=== PATIENT | female | born 1980 | race Two or more races ===

== ENCOUNTER → 2017-02-14 | Outpatient (CLI) | payer BC ==
--- NOTE | ~2017-02-14 | MY26 ---
[facility] A Service of [facility] & [facility] RADIOLOGY TEXT RESULTS PATIENT: LEWIS MURCIA LOCATION: [facility] : 82 UNIT #: [id number] AGE: [address]: KAREN MARTIN MD SEX: F ORDER DR: [id number] [facility] [address]. [place], [place] [address] [id number] O MR#: [id number] Acc #: [id number] NAME: LEWIS MURCIA : 1980 SEX: F STUDY DATE/TIME: 02/14/2017 11:40 UNIT: [facility] ROOM: STUDY DESCRIPTION: [facility] DIAGNOSTIC W/ CAD BILAT Attending Physician: Karen Martin M.D. Referring Physician: Karen Martin M.D. Ordering Physician: Physician Non-Staff Primary Care Physician: Karen Martin M.D. MEDICAL IMAGING REPORT This report is preliminary unless electronic signature is present EXAMS 1. Bilateral digital diagnostic mammogram with CAD. 2. Diagnostic left breast ultrasound. CLINICAL HISTORY 36-year-old female with a new palpable abnormality in the medial left breast. The nodule has been present for 1 week. FINDINGS Mammogram: The background breast parenchyma consists of scattered fibroglandular densities. When compared to the prior study, there is asymmetric density in the upper/outer quadrant of the left breast on the MLO projection. There are 2 areas of asymmetric density on the lateral left breast on the CC projection. There is a 0.8 x 0.5 x 0.8 cm well-circumscribed nodule in the medial left breast which correlates with the patient's palpable abnormality. There is no associated microcalcifications or architectural distortion. The borders are well-defined and well demarcated. Exam is compared to prior mammogram dated 10/01/2013. 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 LEFT BREAST ULTRASOUND: Tom-scale and color Doppler ultrasound of the left breast was performed with attention to the palpable abnormality. There is a well-circumscribed hyperechoic nodule measuring 1.3 x 1.2 x 0.8 cm. There is a low internal cyst with some internal debris. This is STS. [facility] A Service of [facility] RADIOLOGY TEXT RESULTS PATIENT: LEWIS MURCIA LOCATION: [facility] : 82 UNIT #: [id number] AGE: [address]: KAREN MARTIN MD SEX: F ORDER DR: probably an area of fat necrosis or a complex cyst. This can be followed at 6-month interval. IMPRESSION 1. Incomplete mammogram. There are asymmetric densities in the left breast that are changed from the patient's prior mammogram of 10/01/2013. Diagnostic left breast mammogram with spot compression views and rolled views are recommended. 2. Please note the patient's outside images were not available at the time of her visit to acquire these additional images. These abnormalities were not apparent until direct comparison with the prior studies. 3. The well-circumscribed palpable nodule in the left breast should undergo a 6-month follow-up ultrasound, regardless of the diagnostic mammogram results. 4. BIRADS 0. RECOMMENDATIONS: (1) Diagnostic left breast mammogram to further evaluate areas in the lateral left breast. (2) Six month follow up left breast ultrasound. Patients over the age of 40 are entered into a reminder system with target due date for the next mammogram. A result letter will also be sent to the patient. BIRADS: 0 Incomplete; need additional imaging evaluation and/or prior mammograms for comparison. Dictated by... Jose Garcia M.D. THIS IS AN ELECTRONICALLY VERIFIED REPORT Jose Garcia M.D. at 02/17/2017 3:01 PM MIGUEL/lori TD: 02/14/2017 15:54 JOB #: [id number] MEDICAL IMAGING REPORT Page 1 of 1 COPY
--- NOTE | ~2017-02-14 | US24 ---
[facility] A Service [facility] RADIOLOGY TEXT RESULTS PATIENT: LEWIS MURCIA LOCATION: [facility] : 81 UNIT #: [id number] AGE: [address]: KAREN MARTIN MD SEX: F ORDER DR: [id number] [address] [address] [id number] O MR#: [id number] Acc #: [id number] NAME: LEWIS MURCIA : 1980 SEX: F STUDY DATE/TIME: 02/14/2017 8:44 UNIT: [facility] ROOM: STUDY DESCRIPTION: US Breast Unilateral Attending Physician: Karen Martin M.D. Referring Physician: Karen Martin M.D. Ordering Physician: Staff Doctor Not On Primary Care Physician: Karen Martin M.D. MEDICAL IMAGING REPORT This report is preliminary unless electronic signature is present EXAM Left breast ultrasound. INDICATIONS Palpable left breast mass. FINDINGS Tom-scale and color Doppler ultrasound of the left breast was obtained. Please refer to diagnostic radiology report for details on the complex cystic mass in the left breast. IMPRESSION Probably benign left breast ultrasound. Six month follow-up ultrasound is recommended. Patients over the age of 40 are entered into a reminder system with target due date for the next mammogram. A result letter will also be sent to the patient. BIRADS: 2 Benign findings. Dictated by... Jose Garcia M.D. THIS IS AN ELECTRONICALLY VERIFIED REPORT Jose Garcia M.D. at 02/14/2017 4:54 PM MIGUEL/lori TD: 02/14/2017 16:05 JOB #: [id number] MEDICAL IMAGING REPORT [facility] A Service [facility] RADIOLOGY TEXT RESULTS PATIENT: LEWIS MURCIA LOCATION: [facility] : 82 UNIT #: [id number] AGE: [address]: KAREN MARTIN MD SEX: F ORDER DR: Page 1 of 1 COPY
== END | disposition home or self-care (01) ==
LOC: CMAM 07:45
DX: N63 Unspecified lump in breast (principal); R92.2 Inconclusive mammogram; Z80.3 Family history of malignant neoplasm of breast
CPT/HCPCS: 76641; G0204

== ENCOUNTER → 2017-02-21 | Outpatient (CLI) | payer BC ==
--- NOTE | ~2017-02-21 | MY24 ---
[facility] A Service of [facility] RADIOLOGY TEXT RESULTS PATIENT: LEWIS MURCIA LOCATION: [facility] : 81 UNIT #: [id number] AGE: [address]: KAREN LOU MD SEX: F ORDER DR: [id number] [facility] [address]. [place], [place] [address] [id number] O MR#: [id number] Acc #: [id number] NAME: LEWIS MURCIA : 1980 SEX: F STUDY DATE/TIME: 02/21/2017 8:13 UNIT: [facility] ROOM: STUDY DESCRIPTION: [facility] W/ CAD UNI Attending Physician: Karen Lou M.D. Referring Physician: Karen Lou M.D. Ordering Physician: Physician Non-Staff Primary Care Physician: Karen Lou M.D. MEDICAL IMAGING REPORT This report is preliminary unless electronic signature is present EXAM Diagnostic mammogram, left side, 02/21/2017. HISTORY After comparison with patient's outside prior mammogram, 2 areas of asymmetry were noted in the left breast. Additional imaging was recommended. FINDINGS Rolled medial and lateral CC view were obtained today in addition to spot compression CC and MLO views and a standard true lateral view. COMPARISON Comparison made with images from 02/14/2017 and outside mammogram from 10/01/2013. FINDINGS Both breasts overall are more dense than on the older study. The asymmetric densities seen on the CC view improve and nearly completely resolve on the rolled views and spot views today. There is a persistent area of density in the deep upper outer left breast that may simply reflect some fibroglandular tissue mammographically. Ultrasound was performed of the upper outer left breast. Ultrasound shows normal fibroglandular tissue with a ridge of more dense tissue that may correspond with the mammographic finding. Given the overall benign appearance of imaging today, 6-month follow-up is recommended. The patient is already having a 6-month follow-up of the left breast for the previously described nodule. These findings and recommendations were discussed with the patient at the time of her examination today. IMPRESSION [facility] A Service of [facility] RADIOLOGY TEXT RESULTS PATIENT: LEWIS MURCIA LOCATION: [facility] : 82 UNIT #: [id number] AGE: [address]: KAREN LOU MD SEX: F ORDER DR: Probably benign mammogram with targeted ultrasound today. Once again, 6-month follow-up mammogram of the left breast and ultrasound recommended. Patients over the age of 40 are entered into a reminder system with target due date for the next mammogram. A result letter will also be sent to the patient. BIRADS: 3 Probably benign finding; short interval followup suggested. Dictated by... Paramjit Knapp Jr., M.D. THIS IS AN ELECTRONICALLY VERIFIED REPORT Paramjit Knapp Jr., M.D. at 03/26/2017 4:33 PM MARTÍN/jaron TD: 02/21/2017 15:40 JOB #: [id number] MEDICAL IMAGING REPORT Page 1 of 1 COPY
--- NOTE | ~2017-02-21 | US24 ---
[facility] A Service of [facility] & [facility] RADIOLOGY TEXT RESULTS PATIENT: LEWIS MURCIA LOCATION: [facility] : 82 UNIT #: [id number] AGE: [address]: KAREN LOU MD SEX: F ORDER DR: [id number] [facility] [address] [facility]. [place], [place] [address] [id number] O MR#: [id number] Acc #: [id number] NAME: LEWIS MURCIA : 1980 SEX: F STUDY DATE/TIME: 02/21/2017 8:46 UNIT: [facility] ROOM: STUDY DESCRIPTION: US Breast Unilateral Attending Physician: Karen Lou M.D. Referring Physician: Karen Lou M.D. Ordering Physician: Karen Lou M.D. Primary Care Physician: Karen Lou M.D. MEDICAL IMAGING REPORT This report is preliminary unless electronic signature is present EXAM Left breast ultrasound 02/21 INDICATIONS Asymmetric density in the deep upper outer left breast on the additional imaging today. FINDINGS For a full report, please see the mammogram report dated 02/21/2017. BIRADS: 3 Probably benign findings; short interval followup suggested. Dictated by... Paramjit Knapp Jr., M.D. THIS IS AN ELECTRONICALLY VERIFIED REPORT Paramjit Knapp Jr., M.D. at 02/21/2017 5:27 PM MARTÍN/fatmata TD: 02/21/2017 15:19 JOB #: [id number] MEDICAL IMAGING REPORT Page 1 of 1 COPY
== END | disposition home or self-care (01) ==
LOC: CMAM 07:53
DX: N63 Unspecified lump in breast (principal)
CPT/HCPCS: 76641; G0206